=== PATIENT | female | born 1990 | race Hispanic/Latino ===

== ENCOUNTER 2018-11-20 11:00 | Outpatient (CLI) | payer OTHER | END 2018-11-20 11:01 | disposition home or self-care (01) | LOC: SLR 11:00 | PROVIDERS: ATTEND Otolaryngology | DX: G47.33 Obstructive sleep apnea (adult) (pediatric) (principal); R40.0 Somnolence; R06.83 Snoring | CPT/HCPCS: 95810 ==

== ENCOUNTER 2018-11-29 11:00 | Outpatient (CLI) | payer OTHER | END 2018-11-29 11:01 | disposition home or self-care (01) | LOC: SLR 11:00 | PROVIDERS: ATTEND Otolaryngology | DX: G47.33 Obstructive sleep apnea (adult) (pediatric) (principal) | CPT/HCPCS: 95811 ==

== ENCOUNTER 2019-04-13 09:45 | Inpatient (IN) | payer OTHER ==
[2019-05-11] MEDS ORDERED: MYLICON PO PRN (09:02)
[2019-05-11] MEDS ORDERED: NORCO PO PRN (09:02)
[2019-05-11] MEDS ORDERED: ZOFRAN IV PRN ×2 (09:02→16:12)
[2019-05-11] MEDS ORDERED: REGLAN IV PRN (09:02)
[2019-05-11] MEDS ORDERED: LOVENOX SUB-Q NR (10:00)
[2019-05-11] MEDS ORDERED: FLAGYL 500 MG/100 ML 500 MG/100 ML BAG IV NR (10:00)
[2019-05-11] MEDS ORDERED: ANCEF/STERILE WATER 2 GM/20 ML 2 GM/20 ML SYRINGE IV NR (10:00)
[2019-05-11] MEDS ORDERED: APRESOLINE IV PRN (10:30)
--- NOTE | 2019-05-11 10:52 | Anesthesia Day of Surgery ---
Anesthesia Day of Surgery - Day of Surgery Patient Examined: Yes Patient H&P Reviewed: Yes Patient is NPO: Yes
--- NOTE | 2019-05-11 10:52 | Anesthesia Consultation ---
Anesthesia Consult and Med Hx Date of service: 05/11/19 - Airway Anesthetic Teeth Evaluation: Good ROM Head & Neck: Adequate Mental/Hyoid Distance: Adequate Mallampati Class: Class II Intubation Access Assessment: Good - Pulmonary Exam CTA: Yes - Cardiac Exam Cardiac Exam: RRR - Pre-Operative Health Status ASA Pre-Surgery Classification: ASA3 Proposed Anesthetic Plan: General (Pt with obesity , URIAH and hypothyroidism for gastric sleeve) - Pulmonary Hx Smoking: No SOB: Yes Hx Sleep Apnea: Yes - Cardiovascular System Hx Hypertension: No Hx Heart Attack/AMI: No - Central Nervous System CVA: No Hx Back Pain: Yes Hx Psychiatric Problems: Yes - Gastrointestinal Hx Gastroesophageal Reflux Disease: No - Endocrine Hx Renal Disease: No Hx Liver Disease: No Hx Insulin Dependent Diabetes: No Hx Non-Insulin Dependent Diabetes: No Hx Hypothyroidism: Yes - Other Systems Hx Alcohol Use: Yes Hx Obesity: Yes
[2019-05-11] MEDS: LACTATED RINGERS 1,000 ML IV SCH ×2 (11:35→22:57)
[2019-05-11] MEDS ORDERED: MARCAINE-EPI 0.5%-1:200,000 INFILTRATI ONE ×2 (12:27→14:03)
[2019-05-11] MEDS ORDERED: XYLOCAINE 1% 20 mL ONE (12:27)
[2019-05-11] MEDS ORDERED: SUBLIMAZE ONE ×2 (13:47→14:06)
[2019-05-11] MEDS ORDERED: DIPRIVAN 10 MG/ML IV ONE ×2 (13:47→13:55)
[2019-05-11] MEDS ORDERED: ZEMURON IV ONE ×2 (13:55→15:05)
[2019-05-11] MEDS ORDERED: XYLOCAINE MPF 2% ONE (13:55)
[2019-05-11] MEDS ORDERED: VERSED IV NR (14:00)
[2019-05-11] MEDS ORDERED: VERSED ONE (14:00)
[2019-05-11] MEDS ORDERED: NACL 0.9% IR ONE (14:03)
[2019-05-11] MEDS ORDERED: XYLOCAINE 1% 20 mL INFILTRATI ONE (14:03)
[2019-05-11] MEDS ORDERED: ZOFRAN ONE (14:31)
[2019-05-11] MEDS ORDERED: DECADRON ONE (14:31)
[2019-05-11] MEDS ORDERED: TORADOL ONE (15:07)
[2019-05-11] MEDS ORDERED: ROBINUL ONE (15:07)
[2019-05-11] MEDS ORDERED: BLOXIVERZ ONE (15:07)
[2019-05-11] MEDS ORDERED: BRIDION IV ONE (15:27)
[2019-05-11] MEDS ORDERED: DILAUDID IV PRN (16:12)
[2019-05-11] MEDS: TORADOL IV SCH ×2 (19:27→23:00)
[2019-05-11] MEDS: DILAUDID IV PRN (22:33)
[2019-05-12] MEDS: DILAUDID IV PRN (04:39)
[2019-05-12] MEDS: TORADOL IV SCH ×2 (04:45→10:44)
[2019-05-12 05:21] LABS: Hematocrit 37.1 % (30.3-42.9); Hemoglobin 12.8 gm/dl (10.1-14.3); Mean Corpuscular HGB Conc 35 % (30-34); Mean Corpuscular Volume 84 fl (79-97); Platelet Count 245 K/mm3 (140-440); Red Blood Count 4.45 M/mm3 (3.65-5.03); Red Cell Distribution Width 13.9 % (13.2-15.2)
[2019-05-12 05:46] LABS: Alanine Aminotransferase 24 units/L (7-56); Albumin 3.8 g/dL (3.9-5); BUN/Creatinine Ratio 9; Blood Urea Nitrogen 6 mg/dL (7-17); Calcium 9.3 mg/dL (8.4-10.2); Hemolysis Index 7
[2019-05-12 06:15] LABS: Basophils % (Manual) 0 % (0.0-1.8); Eosinophils % (Manual) 0 % (0.0-4.3); RBC Morphology Normal; Total Cells Counted 100
--- NOTE | 2019-05-12 07:19 | Discharge Summary ---
Providers - Providers Date of Admission: 05/11/19 08:53 Date of discharge: 05/12/19 Attending physician: BLANE ROGER Primary care physician: LELE MERCADO Hospitalization Reason for admission: postop Condition: Good Procedures: 05/12/19: Lap sleeve gastrectomy Hospital course: 28F admitted after her operation for routine postop care. She had no major issues, ambulated, tolerated a CLD, and was dc home POD1. Disposition: DC-01 TO HOME OR SELFCARE Core Measure Documentation - Palliative Care Palliative Care/ Comfort Measures: Not Applicable - Core Measures Any of the following diagnoses?: none - VTE Discharge Requirements Deep Vein Thrombosis/Pulmonary Embolism Present on Admission: No - Acute [place] Discharge Requirements Aspirin at discharge: No Reason for no aspirin on DC: Surgical contraindication - Heart Failure Discharge Requirements RICO/ARB for LVSD if EF <40%: Not Applicable - Stroke Discharge Requirements Statin for LDL = or >70 mg/dl on DC: Not Applicable Exam - Physical Exam Narrative exam: Gen: AAO, NAD Heart: RRR Lungs: CTAB Abd: MO, soft, NT, ND. Bandages present and c/d/i. - Constitutional Vitals: Temp Pulse Resp BP Pulse Ox 97.5 F L 66 17 104/43 94 05/12/19 05:23 05/12/19 05:24 05/12/19 05:23 05/12/19 05:23 05/12/19 05:24 Plan Diet: clear liquids Wound: keep clean and dry Additional Instructions: Bhanu Roger as scheduled Follow up with: LELE MERCADO MD [Primary Care Provider] - 7 Days
[2019-05-12 08:21] VITALS: BP 99/52
[2019-05-12] MEDS ORDERED: PROzac PO SCH (10:00)
[2019-05-12] MEDS ORDERED: LOVENOX SUB-Q SCH (10:00)
== END 2019-05-12 12:15 | disposition home or self-care (01) | DRG 621 ==
LOC: 3A 05-11 08:53 → 3B-SURG 05-11 16:32
PROVIDERS: ADMIT Specialist; ATTEND Specialist
PROC: 0DB64Z3 Excision of Stomach, Percutaneous Endoscopic Approach, Vertical (ICD-10-PCS; principal; 2019-05-11)
DX: E66.01 Morbid (severe) obesity due to excess calories (principal); E03.9 Hypothyroidism, unspecified; G47.33 Obstructive sleep apnea (adult) (pediatric); F32.9 Major depressive disorder, single episode, unspecified; F41.9 Anxiety disorder, unspecified; Z68.43 Body mass index [BMI] 50.0-59.9, adult; K21.9 Gastro-esophageal reflux disease without esophagitis
CPT/HCPCS: 36415; 80053; 81025; 85007; 85025; 88307; G0378; A4217; J0690; J1100; J1170; J1650; J1885; J2250; J2405; J2704; J2710; J3010; J7120

== ENCOUNTER 2019-04-27 06:53 | Day surgery (SDC) | payer OTHER ==
[2019-04-27] MEDS ORDERED: NACL 0.9% 1000 ML 1,000 ML IV SCH (07:00)
[2019-04-27] MEDS ORDERED: DIPRIVAN 10 MG/ML IV ONE (13:16)
[2019-04-27] MEDS ORDERED: VERSED ONE (13:18)
--- NOTE | 2019-04-27 13:32 | Operative Report ---
PREOPERATIVE DIAGNOSIS: Morbid obesity. POSTOPERATIVE DIAGNOSIS: Gastritis. PROCEDURE: Esophagogastroduodenoscopy. ANESTHESIA: MAC. COMPLICATIONS: None. BLEEDING: None. SPECIMENS: None. INDICATIONS: The patient is a 28-year-old female with a history of morbid obesity. She is here for a preoperative EGD in preparation for her weight loss surgery. Informed consent was obtained. DESCRIPTION OF PROCEDURE: The patient was brought to the GI Suite where she was placed in the left lateral decubitus position and underwent MAC anesthesia. A bite block was placed and a timeout was called. A standard adult gastroscope was inserted into the oropharynx, down the esophagus, into the stomach and the first portion of the duodenum. On retroflexion view, there was no hiatal hernia. She was noted to have mild gastritis in the antrum. Air was suctioned out. The gastroscope was removed. The patient tolerated the procedure with no immediate complications and was transferred to the PACU in stable condition. JOB# [id number] DEBORAH/RYAN
--- NOTE | 2019-04-27 14:20 | Anesthesia Consultation ---
Anesthesia Consult and Med Hx Date of service: 04/27/19 - Airway Anesthetic Teeth Evaluation: Good ROM Head & Neck: Adequate Mental/Hyoid Distance: Adequate Mallampati Class: Class III Intubation Access Assessment: Possibly Difficult - Pulmonary Exam CTA: Yes - Cardiac Exam Cardiac Exam: RRR - Pre-Operative Health Status ASA Pre-Surgery Classification: ASA3 Proposed Anesthetic Plan: MAC - Pulmonary Hx Smoking: No Hx Sleep Apnea: Yes - Cardiovascular System Hx Hypertension: No Hx Heart Attack/AMI: No - Central Nervous System CVA: No Hx Back Pain: Yes - Gastrointestinal Hx Gastroesophageal Reflux Disease: No - Endocrine Hx Renal Disease: No Hx Liver Disease: No Hx Insulin Dependent Diabetes: No Hx Non-Insulin Dependent Diabetes: No Hx Hypothyroidism: Yes - Other Systems Hx Obesity: Yes
--- NOTE | 2019-04-27 14:20 | Anesthesia Day of Surgery ---
Anesthesia Day of Surgery - Day of Surgery Patient Examined: Yes Patient H&P Reviewed: Yes Patient is NPO: Yes
[2019-04-27 17:38] VITALS: BP 104/57
== END 2019-04-27 06:54 | disposition home or self-care (01) ==
LOC: GIO 06:53
PROVIDERS: ATTEND Specialist
DX: K29.70 Gastritis, unspecified, without bleeding (principal); K30 Functional dyspepsia; G47.30 Sleep apnea, unspecified; E03.9 Hypothyroidism, unspecified; F41.9 Anxiety disorder, unspecified; E66.01 Morbid (severe) obesity due to excess calories; K21.9 Gastro-esophageal reflux disease without esophagitis; F32.9 Major depressive disorder, single episode, unspecified; Z88.1 Allergy status to other antibiotic agents; Z79.899 Other long term (current) drug therapy; Z68.43 Body mass index [BMI] 50.0-59.9, adult; Z98.891 History of uterine scar from previous surgery
CPT/HCPCS: 43235; 81025; J2250; J2704; J7030